=== PATIENT | female | born 1950 | race Caucasian/White ===

== ENCOUNTER 2018-12-13 11:43 | Emergency (ER) | payer MEDICARE, BC ==
[~2018-12-13] VITALS: Ht 172.7 cm; Wt 84.5 kg
[~2018-12-13 11:43] MED LIST: ALOE1CAP PO; ASPI-1265 PO; BETA1TAB14 PO; CEPH500C5 PO; DILT-29 PO; DIPH-689 PO; DOXY100C2 PO; ESTR10TA VG; IBUP-24 PO; LEVO50TA PO; PSYL3.4P5 PO; RIVA20TA PO; THEA25PO MC
[2018-12-13 12:15] LABS: BASOPHILS % (AUTO) 0.5 % (0-1); EOSINOPHILS % (AUTO) 0.1 % (0-6); HEMATOCRIT 48.6 % (35.0-45.0); LYMPHOCYTES # (AUTO) 0.9 X10'3 (1.1-4.8); LYMPHOCYTES % (AUTO) 15.1 % (21-51); MEAN CORPUSCULAR HEMOGLOBIN 30.5 PG (27.0-31.0); MEAN CORPUSCULAR HGB CONC 32.9 g/dL (33.0-36.5); MEAN CORPUSCULAR VOLUME 92.9 FL (78-98); MEAN PLATELET VOLUME 7.9 FL (7.4-10.4); MONOCYTES # (AUTO) 0.4 X10'3 (0-0.9); MONOCYTES % (AUTO) 6.4 % (2-12); NEUTROPHILS # (AUTO) 4.8 X10'3 (1.8-7.7); NEUTROPHILS % (AUTO) 77.9 % (42-75); PLATELET COUNT 248 X10'3 (140-440); RED BLOOD COUNT 5.23 X10'6 (4.20-5.60); RED CELL DISTRIBUTION WIDTH 14.1 % (11.5-14.5); WHITE BLOOD COUNT 6.1 X10'3 (4.5-11.0)
[2018-12-13 12:30] LABS: INR 1.1 INR; PARTIAL THROMBOPLASTIN TIME 32 SECONDS (22-32)
[2018-12-13 12:32] LABS: ALANINE AMINOTRANSFERASE 22 U/L (12-78); ALKALINE PHOSPHATASE 101 IU/L (46-116); ANION GAP 11 (8-16); ASPARTATE AMINO TRANSFERASE 24 U/L (10-37); BILIRUBIN,TOTAL 0.5 MG/DL (0.1-1.0); BLOOD UREA NITROGEN 18 MG/DL (7-18); BUN/CREATININE RATIO 17.8 (6.6-38.0); CALCIUM 9.6 MG/DL (8.5-10.1); CHLORIDE 103 MMOL/L (99-107); CREATININE 1.01 MG/DL (0.40-0.90); GLUCOSE 112 MG/DL (70-104); POTASSIUM 3.8 MMOL/L (3.5-5.1); SODIUM 141 MMOL/L (135-145); TOTAL PROTEIN 7.9 G/DL (6.4-8.2); eGFR 55 ML/MIN
[2018-12-13] MEDS ORDERED: propofol 10mg/ml 20ml vial IV ONE (12:45)
[2018-12-13 13:40] VITALS: BP 154/95
== END 2018-12-13 13:51 | disposition home or self-care (01) ==
LOC: ER 11:44
DX: I48.92 Unspecified atrial flutter (principal); I48.91 Unspecified atrial fibrillation; E03.9 Hypothyroidism, unspecified; Z88.0 Allergy status to penicillin; Z88.2 Allergy status to sulfonamides; Z88.8 Allergy status to other drugs, medicaments and biological substances; Z79.82 Long term (current) use of aspirin; Z79.899 Other long term (current) drug therapy; Z56.0 Unemployment, unspecified
CPT/HCPCS: 36415; 71045; 80053; 84484; 85025; 85610; 85730; 92960; 93005; 99152; 99285; J2704

== ENCOUNTER 2019-04-22 18:25 | Inpatient (IN) | payer MEDICARE, BC ==
[~2019-04-22] VITALS: Ht 172.7 cm; Wt 83.6 kg
[~2019-04-22 18:25] MED LIST changes: -CEPH500C5 PO
[2019-04-22 19:04] LABS: ALANINE AMINOTRANSFERASE 16 U/L (12-78); ALBUMIN 3.6 G/DL (3.4-5.0); ALKALINE PHOSPHATASE 97 IU/L (46-116); ANION GAP 10 (8-16); ASPARTATE AMINO TRANSFERASE 21 U/L (10-37); BILIRUBIN,TOTAL 0.4 MG/DL (0.1-1.0); BLOOD UREA NITROGEN 16 MG/DL (7-18); BUN/CREATININE RATIO 16.5 (6.6-38.0); CALCIUM 8.7 MG/DL (8.5-10.1); CHLORIDE 107 MMOL/L (99-107); CREATININE 0.97 MG/DL (0.40-0.90); GLUCOSE 143 MG/DL (70-104); SODIUM 141 MMOL/L (135-145); TOTAL CARBON DIOXIDE 23.6 MMOL/L (24-32); TOTAL PROTEIN 7.2 G/DL (6.4-8.2); eGFR 57 ML/MIN
[2019-04-22 19:07] LABS: PARTIAL THROMBOPLASTIN TIME 23 SECONDS (22-32)
[2019-04-22 19:20] LABS: BASOPHILS % (AUTO) 0.1 % (0-1); EOSINOPHILS % (AUTO) 0.4 % (0-6); HEMATOCRIT 46.6 % (35.0-45.0); HEMOGLOBIN 15.7 g/dl (12.0-16.0); LYMPHOCYTES # (AUTO) 0.4 X10'3 (1.1-4.8); LYMPHOCYTES % (AUTO) 4.7 % (21-51); MEAN CORPUSCULAR HEMOGLOBIN 31.3 PG (27.0-31.0); MEAN CORPUSCULAR HGB CONC 33.6 g/dL (33.0-36.5); MEAN CORPUSCULAR VOLUME 93.2 FL (78-98); MEAN PLATELET VOLUME 7.7 FL (7.4-10.4); MONOCYTES # (AUTO) 0.4 X10'3 (0-0.9); MONOCYTES % (AUTO) 4.7 % (2-12); NEUTROPHILS # (AUTO) 8.1 X10'3 (1.8-7.7); NEUTROPHILS % (AUTO) 90.1 % (42-75); PLATELET COUNT 202 X10'3 (140-440); RED CELL DISTRIBUTION WIDTH 14.4 % (11.5-14.5)
[2019-04-22] MEDS ORDERED: diltiazem 5mg/ml 5ml inj. IV ONE ×2 (20:00→20:30)
--- NOTE | 2019-04-22 20:22 | NUR ---
PER DR. LAURA HI FOR PT TO TAKE OWN HOME MED ELIQUIS ONE TAB. ELIQUIS TAKEN
[2019-04-22] MEDS ORDERED: temazepam 15mg capsule PO PRN (21:00)
[2019-04-22] MEDS ORDERED: AZIL40TA PO (22:07)
[2019-04-22] MEDS ORDERED: APIX5TAB3 PO (22:07)
[2019-04-22] MEDS ORDERED: VIT1CAPS46 PO (22:07)
[2019-04-22] MEDS ORDERED: XAL0.005OS EACHEYE (22:07)
[2019-04-22] MEDS ORDERED: ESTR10TA VG (22:22)
[2019-04-22] MEDS: diltiazem-NS 100mg/100ml 100 ML IV SCH (22:26)
[2019-04-22] MEDS ORDERED: normal saline 1000ml 1,000 ML IV SCH (22:29)
[2019-04-22] MEDS ORDERED: acetaminophen 325mg tablet PO PRN (22:30)
[2019-04-22] MEDS ORDERED: magnesium hydroxide 30ml (MOM) UD suspension PO PRN (22:30)
[2019-04-22] MEDS ORDERED: mag hydrox/Alum hydrox/simeth 30ml oral suspension PO PRN (22:30)
[2019-04-22] MEDS ORDERED: ondansetron/PF 4mg/2ml inj IV PRN (22:30)
--- NOTE | 2019-04-22 22:55 | NUR ---
I have received report from Rina PASTOR and had the opportunity to ask questions and awaiting arrival of patient to the PCU unit.
[2019-04-22 23:00] VITALS: BP 148/110
--- NOTE | 2019-04-22 23:10 | NUR ---
Patient arrived to the PCU unit at this time. She is alert and oriented and able to make her needs known. is with her. She ambulated to the bed from the [facility] independently. She denies any pain. She is on room air. She is on a Cardizem gtt at 5mg/hour. Safety precautions in place. Will continue to monitor.
[2019-04-22 23:30] VITALS: BP 142/90
[2019-04-22] MEDS ORDERED: losartan 50mg tablet PO ONE (23:45)
[2019-04-22] MEDS ORDERED: latanoprost 0.005% 2.5ml ophthalmic drops EACHEYE SCH (23:50)
[2019-04-23] VITALS (12 sets, daily range): BP systolic 94–154; BP diastolic 56–99
--- NOTE | 2019-04-23 00:41 | NUR ---
Requested for patient to have family member bring in her home Vagifem cream per our pharmacy request. Patient stated that she will not need it until Sunday but if she is still here by then she would have family bring it in.
[2019-04-23 00:48] LABS: BASOPHILS % (AUTO) 0.1 % (0-1); EOSINOPHILS % (AUTO) 0.1 % (0-6); HEMATOCRIT 45.5 % (35.0-45.0); HEMOGLOBIN 15.3 g/dl (12.0-16.0); LYMPHOCYTES # (AUTO) 0.9 X10'3 (1.1-4.8); LYMPHOCYTES % (AUTO) 12.2 % (21-51); MEAN CORPUSCULAR HEMOGLOBIN 31.6 PG (27.0-31.0); MEAN CORPUSCULAR HGB CONC 33.6 g/dL (33.0-36.5); MEAN PLATELET VOLUME 7.7 FL (7.4-10.4); MONOCYTES # (AUTO) 0.3 X10'3 (0-0.9); MONOCYTES % (AUTO) 3.4 % (2-12); NEUTROPHILS # (AUTO) 6.2 X10'3 (1.8-7.7); NEUTROPHILS % (AUTO) 84.2 % (42-75); PLATELET COUNT 193 X10'3 (140-440); RED BLOOD COUNT 4.84 X10'6 (4.20-5.60); RED CELL DISTRIBUTION WIDTH 14.2 % (11.5-14.5); WHITE BLOOD COUNT 7.4 X10'3 (4.5-11.0)
[2019-04-23 01:02] LABS: ALANINE AMINOTRANSFERASE 18 U/L (12-78); ALBUMIN 3.4 G/DL (3.4-5.0); ALKALINE PHOSPHATASE 90 IU/L (46-116); ANION GAP 8 (8-16); ASPARTATE AMINO TRANSFERASE 21 U/L (10-37); BILIRUBIN,TOTAL 0.5 MG/DL (0.1-1.0); BLOOD UREA NITROGEN 11 MG/DL (7-18); CALCIUM 8.7 MG/DL (8.5-10.1); CHLORIDE 109 MMOL/L (99-107); CREATININE 0.92 MG/DL (0.40-0.90); GLUCOSE 113 MG/DL (70-104); POTASSIUM 4.3 MMOL/L (3.5-5.1); SODIUM 143 MMOL/L (135-145); TOTAL CARBON DIOXIDE 25.7 MMOL/L (24-32); TOTAL PROTEIN 6.9 G/DL (6.4-8.2); eGFR 61 ML/MIN
--- NOTE | 2019-04-23 05:47 | NUR ---
[place] documentation: I have reviewed and agree with all interventions, assessments performed and documented by Daily PASTOR. [place] Medication Administration: For this medication-pass time frame, all medication were reviewed, dispensed, administered and documented per hospital policy by Daily PASTOR.
--- NOTE | 2019-04-23 06:19 | NUR ---
Problems reprioritized. Patient report given, questions answered & plan of care reviewed with Jenna PASTOR.
--- NOTE | 2019-04-23 06:37 | NUR ---
Patient in room PCU 3016. I have received report from Luisa, RNs and had the opportunity to ask questions and assume patient care. Patient is currently resting in bed, son at bedside, bed locked and low, call light in reach. Cardizem drip running at 5ml/hr, HR briefly came up to 150s but is currently 100-110s. will continue to monitor.
[2019-04-23] MEDS ORDERED: levoTHYROXINE 25mcg tablet PO SCH (07:00)
[2019-04-23] MEDS ORDERED: losartan 50mg tablet PO SCH ×2 (08:00→21:00)
[2019-04-23] MEDS ORDERED: apixaban 5mg tablet PO SCH (08:00)
[2019-04-23] MEDS: diltiazem-NS 100mg/100ml 100 ML IV SCH (08:20)
[2019-04-23] MEDS ORDERED: magnesium 4gm in 100ml NS 100 ML IV PRN (09:15)
[2019-04-23] MEDS ORDERED: potassium Cl 20 mEq SR tablet PO PRN ×2 (09:15)
[2019-04-23] MEDS ORDERED: magnesium Cl slow-release 64mg tablet PO PRN (09:15)
[2019-04-23] MEDS ORDERED: potassium CL 10mEq/100ml bag 100 ML IV PRN (09:15)
--- NOTE | 2019-04-23 11:09 | NUR ---
PAGER ID: [phone] MESSAGE: DARBY West, ext [phone], [phone], Fadi pt converted to SR@1100, Glenn still going at 5/hr. Thank you.
[2019-04-23] MEDS ORDERED: verapamil SR 180mg tablet PO ONE (11:50)
--- NOTE | 2019-04-23 11:54 | NUR ---
promotional table spacer PAGER ID: [phone] MESSAGE: DARBY West, ext [phone], [phone], Fadi, TSH is 2.01
[2019-04-23] MEDS ORDERED: VERA180T11 PO (12:36)
--- NOTE | 2019-04-23 13:10 | NUR ---
Received report for patient discharge to home. Patient recieved discharge packet and verbalized understanding of discharge teaching. Will call her machine technician to follow up regarding this episode of RVR. IV removed, catheter tip intact, hemostasis achieved, telemetry removed, wrist band removed, patient dressed self and left with family members. Patient stable at time of discharge.
--- NOTE | 2019-04-23 13:44 | NUR ---
Called in prescription to [facility] [address] per pt request.
[2019-04-23] MEDS ORDERED: latanoprost 0.005% 2.5ml ophthalmic drops EACHEYE SCH (21:00)
[2019-04-24] MEDS ORDERED: verapamil SR 180mg tablet PO SCH (21:00)
== END 2019-04-23 14:31 | disposition home or self-care (01) | DRG 310 ==
LOC: ER 18:25 → PCU 3S 23:07 → CMPBEDREQ 23:23
PROVIDERS: ADMIT Internal Medicine; ATTEND Family Medicine
DX: I48.0 Paroxysmal atrial fibrillation (principal); E03.9 Hypothyroidism, unspecified; H40.9 Unspecified glaucoma; F41.9 Anxiety disorder, unspecified; Z79.01 Long term (current) use of anticoagulants; Z79.890 Hormone replacement therapy; Z79.899 Other long term (current) drug therapy; Z79.82 Long term (current) use of aspirin; Z56.0 Unemployment, unspecified; Z88.0 Allergy status to penicillin; Z88.2 Allergy status to sulfonamides; Z88.8 Allergy status to other drugs, medicaments and biological substances
CPT/HCPCS: 36415; 71045; 80053; 84443; 84484; 85025; 85610; 85730; 87081; 93005; 96374; 96375; 99285; G0378; J3490

== ENCOUNTER 2025-05-18 06:45 | Day surgery (SDC) | payer MEDICARE, BC ==
[2025-05-18] VITALS (10 sets, daily range): BP systolic 146–188; BP diastolic 84–94; PULSE 60–65; RESP 12–16; TEMP 97.8; O2SAT 98–99
[~2025-05-18] VITALS: Ht 172.7 cm; Wt 76.9 kg
[~2025-05-18 06:45] MED LIST changes: +APIX5TAB3 PO; -ASPI-1265 PO; +AZIL40TA PO; -BETA1TAB14 PO; -DILT-29 PO; -DIPH-689 PO; -DOXY100C2 PO; -IBUP-24 PO; -PSYL3.4P5 PO; -RIVA20TA PO; -THEA25PO MC; +VERA180T59 PO; +VIT1CAPS46 PO; +XAL0.005OS EACHEYE; +clindamycin-Cleocin 900mg/D5W 50 ML IV ONE
--- NOTE | 2025-05-18 07:24 | ELECTROCARDIOGRAPH REPORT ---
[facility] Test Date: 2025-05-18 Test Time: 07:21:29 Pat Name: FRANCO ALEJANDRA Department: [facility] Patient ID: [id number] Room: Gender: F Audiovisual Technician: SHANNON : 1950 Requested By: HA RAHMAN Order Number: [id number] Reading MD: Dr. CLARITA Pablo Measurements Intervals Harbert Rate: 63 P: -25 WV: 220 QRS: -54 QRSD: 110 T: 32 QT: 429 QTc: 440 Interpretive Statements Sinus rhythm Prolonged WV interval Left anterior fascicular block Baseline wander in lead(s) V6 Electronically Signed On 05-18-2025 17:11:[address] CLARITA Pablo Please click the below link to view image of tracing.
[2025-05-18] MEDS ORDERED: EVOL140P3 SQ (07:31)
[2025-05-18] MEDS ORDERED: [UNRECOGNIZED DRUG - CODE] PO (07:31)
[2025-05-18 07:48] LABS: CREATININE 1.03 MG/DL (0.40-0.90); TOTAL CARBON DIOXIDE 28.1 MMOL/L (24-32); eCRCL 48 ML/MIN; eGFR 52 ML/MIN
[2025-05-18 07:49] LABS: INR 1.1 INR
[2025-05-18 07:55] LABS: MEAN PLATELET VOLUME 8.1 FL (7.4-10.4); RED CELL DISTRIBUTION WIDTH 14.7 % (11.5-14.5)
[2025-05-18] MEDS: normal saline 1000ml 1,000 ML IV SCH (08:08)
[2025-05-18] MEDS: vancomycin/NS 1 GM ADD-VANTAGE 250 ML IV ONE (08:19)
[2025-05-18] MEDS ORDERED: midazolam 1 mg/ML 2ml injection ONE (09:03)
[2025-05-18] MEDS ORDERED: fentaNYL/PF 50MCG/1 ML 2ML syringe ONE (09:04)
[2025-05-18] MEDS ORDERED: vancomycin 1,000mg inj ONE (09:04)
[2025-05-18] MEDS ORDERED: LIDOcaine 1% W/epiNEPHrine 1:100,000 20ml vial ONE (09:04)
[2025-05-18] MEDS ORDERED: iohexol 350 MG/ML 50ML vial IV ONE (09:36)
[2025-05-18] MEDS ORDERED: normal saline 1000ml 1,000 ML IV SCH (11:45)
--- NOTE | 2025-05-18 11:48 | RADIOLOGY REPORT ---
EXAM: DI CHEST,SINGLE VIEW HISTORY: POST OP PACEMAKER TECHNIQUE: 1 view of the chest COMPARISON: None FINDINGS/IMPRESSION: LUNGS: No pleural effusion, consolidation, or pneumothorax. MEDIASTINUM: Normal cardiac size. Left anterior chest 2 lead cardiac device. BONES: No acute osseous abnormality. OTHER: None.
--- NOTE | 2025-05-18 13:39 | CARDIOLOGY REPORT ---
DATE OF SERVICE: 05/18/2025 DICTATING PHYSICIAN: HA RAHMAN DO CARDIAC CATHETERIZATION REPORT DATE OF SERVICE: 05/18/2025 PREOPERATIVE DIAGNOSES: 1. Sick sinus syndrome. 2. Intermittent sinus arrest. POSTOPERATIVE DIAGNOSES: 1. Sick sinus syndrome. 2. Intermittent sinus arrest. PROCEDURES PERFORMED: 1. Implantation of permanent dual chamber pacemaker with endocardial electrodes. 2. 75 minutes of conscious sedation supervision. CLINICAL HISTORY: This 74-year-old woman has been complaining of chronic fatigue associated with marked bradycardia. She has also had episodes of sinus arrest lasting 4 or more seconds. She has had episodes of dizziness but no yogesh syncope. ANESTHESIA: Conscious sedation with local to skin. DEVICES IMPLANTED: Biotronik RV electrode, model #175263 and serial #[id number]; Biotronik atrial electrode, model #108070 and serial #[id number]; Biotronik pulse generator, model #940698 and serial #[id number]. DESCRIPTION OF PROCEDURE: The patient was sedated with fentanyl and Versed. She was then prepared and draped in the usual manner. The left pectoral region was liberally infiltrated with 1% lidocaine containing a 1:100,000 mixture of epinephrine. Using a micropuncture set, a small guidewire was placed in the subclavian vein. Next, a 5 cm incision was made directly beneath the wire and a subcutaneous pocket was created with electrocautery. The guidewire was pulled into the pocket and using the micropuncture size-up sheath, a 0.035 guidewire was passed into the central venous circulation. Then, using a 1-stick 2-wire technique, a 6-Bangladeshi sheath and a 9-Bangladeshi sheath were both placed at the same location within the subclavian vein. Using the 9-Bangladeshi sheath, the right ventricular electrode was passed into the right atrium, prolapsed across the tricuspid valve and placed on the mid interventricular septum. The R-wave amplitude was 9 mV, impedance 600 ohms, threshold for capture 0.9 volts. Using the 6-Bangladeshi sheath, the right atrial electrode was passed into the area of the right atrial appendage. The screw was extended, stylet was withdrawn, and sensing and pacing evaluation demonstrated a P-wave amplitude of 2 mV and impedance of 720 ohms and a threshold for capture of 0.9 volts. The sheaths were removed while ensuring stability of the electrodes. A 3-0 Vicryl suture was placed around the electrodes at the exit point from the pectoral fascia. The electrodes were further secured to the pectoral fascia using 2-0 Ethibond sutures around the suturing sleeves. Next, the generator was attached to the electrodes and together they were placed in the pocket. The generator was suspended with an 0 Ethibond suture. The pocket was irrigated with a vancomycin antibiotic solution. The subcutaneous layer was closed with 3-0 Vicryl and the skin was approximated with 4-0 Monocryl. Initial mireya parameters were a mode of DDDR with pace range of 60 to 130 bpm. The amplitude and pulse width on both electrodes was set at 3.5 volts and 0.4 msec. A chest x-ray was pending at the time of this dictation. HA RAHMAN DO TID: [id number] RECEIPT: [id number] PRINCESS/
== END 2025-05-18 13:00 | disposition home or self-care (01) ==
LOC: SSTAY O 06:45
PROVIDERS: ATTEND Internal Medicine Cardiovascular Disease
DX: I49.5 Sick sinus syndrome (principal); I44.4 Left anterior fascicular block; R94.31 Abnormal electrocardiogram [ECG] [EKG]; I48.0 Paroxysmal atrial fibrillation; I48.3 Typical atrial flutter; E89.0 Postprocedural hypothyroidism; E78.5 Hyperlipidemia, unspecified; Z79.01 Long term (current) use of anticoagulants; Z79.899 Other long term (current) drug therapy; Z98.890 Other specified postprocedural states; Z88.2 Allergy status to sulfonamides; Z88.8 Allergy status to other drugs, medicaments and biological substances
CPT/HCPCS: 33208; 36415; 71045; 80048; 83735; 85025; 85610; 93005; 99152; 99153; A4565; C1769; C1785; C1898; J2250; J3010; J3373; J3490; J7030; Q9967